=== PATIENT | male | born 1975 | race Caucasian/White ===

== ENCOUNTER 2019-01-17 18:23 | Inpatient (IN) | payer MEDICARE ==
[~2019-01-17] VITALS: Ht 188 cm; Wt 123.1 kg
[2019-01-17] MEDS ORDERED: ARIP15TA2 PO (21:10)
[2019-01-17] MEDS ORDERED: ZOLPIDEM TARTRATE 10 MG TABLET PO PRN (21:30)
[2019-01-17] MEDS ORDERED: HALOPERIDOL 5 MG TABLET PO PRN (21:30)
[2019-01-17] MEDS ORDERED: LORazepam 2 MG TABLET PO PRN (21:30)
[2019-01-17] MEDS ORDERED: INFLUENZA VIRUS VACCINE QVS 2019-20 (3YR+)/PF 60 MCG/0.5 ML SYRINGE IM ONE (22:15)
[2019-01-18 00:56] VITALS: BP 125/82
[2019-01-18 08:24] LABS: BASOPHILS % (AUTO) 0.7 % (0.0-2.0); EOSINOPHILS % (AUTO) 1.6 % (1.0-6.0); HEMATOCRIT 40.4 % (41-53); HEMOGLOBIN 13.7 g/dL (13.5-17.5); LYMPHOCYTES # (AUTO) 1.9 K/uL (1.0-4.8); LYMPHOCYTES % (AUTO) 32.7 % (22.0-44.0); MEAN CORPUSCULAR HEMOGLOBIN 30.5 pg (26.0-34.0); MEAN CORPUSCULAR HGB CONC 33.9 G/dL (31.0-37.0); MEAN CORPUSCULAR VOLUME 90 fL (80-100); MONOCYTES # (AUTO) 0.6 K/uL (0.1-1.0); MONOCYTES % (AUTO) 10.4 % (2.0-9.0); NEUTROPHILS # (AUTO) 3.2 K/uL (1.8-7.7); NEUTROPHILS % (AUTO) 54.6 % (40.0-70.0); PLATELET COUNT (AUTO) 246 K/uL (150-450); RED BLOOD CELL COUNT(AUTO) 4.49 MIL/uL (4.50-5.90); RED CELL DISTRIBUTION WIDTH 14.2 % (11.5-14.5)
[2019-01-18 09:02] LABS: ALANINE AMINOTRANSFERASE 18 U/L (12-78); ALBUMIN 3.3 g/dL (3.4-5.0); ALKALINE PHOSPHATASE 104 U/L (46-116); ANION GAP 10 mmol/L (8-16); ASPARTATE AMINOTRANSFERASE 10 U/L (15-37); BILIRUBIN,TOTAL 0.2 mg/dL (0.1-1.0); CALCIUM, TOTAL 8.5 mg/dL (8.8-10.5); CARBON DIOXIDE 25 mmol/L (22-29); CHLORIDE 103 mmol/L (98-107); CHOL/HDL RATIO 8.5 (4.2-7.3); CHOLESTEROL 213 mg/dL (131-200); CREATININE 0.86 mg/dL (0.60-1.30); FREE T4 (FREE THYROXINE) 0.95 ng/dL (0.76-1.46); GLOMERULAR FILTR. RATE CALC > 60 mL/min (>60); GLUCOSE,RANDOM 120 mg/dL (70-110); HDL CHOLESTEROL 25 mg/dL (40-60); LDL CHOL (CALC.) 116 mg/dL (0-130); POTASSIUM 3.9 mmol/L (3.5-5.1); SODIUM SERUM 138 mmol/L (136-145); THYROID STIMULATING HORMONE 1.49 uIU/mL (0.36-3.74); TOTAL PROTEIN, SERUM 6.5 g/dL (6.4-8.2); TRIGLYCERIDES 359 mg/dL (15-150); UREA NITROGEN, BLOOD 17 mg/dL (7-18)
[2019-01-18 09:05] VITALS: BP 107/61
[2019-01-18 09:10] LABS: HEMOGLOBIN A1C 5.5 % (4.5-6.2)
[2019-01-18 16:23] VITALS: BP 106/61
[2019-01-19 01:29] VITALS: BP 104/62
[2019-01-19 08:57] VITALS: BP 115/63
[2019-01-19] MEDS ORDERED: ARIPiprazole 15 MG TABLET PO SCH (09:00)
[2019-01-19 10:58] LABS: APPEARANCE,URINE CLEAR (CLEAR); BILIRUBIN,URINE NEGATIVE (NEGATIVE); GLUCOSE, URINE (UA) NEGATIVE (NEGATIVE); KETONES,URINE NEGATIVE (NEGATIVE); LEUKOCYTE ESTERASE ,URINE NEGATIVE (NEGATIVE); NITRATE,URINE NEGATIVE (NEGATIVE); OCCULT BLOOD,URINE NEGATIVE (NEGATIVE); PROTEIN,URINE NEGATIVE (NEGATIVE); UROBILINOGEN,URINE 0.2 mg/dL (<=1.0)
[2019-01-19 11:14] LABS: AMPHET/METH SCREEN,URINE NEGATIVE (NEGATIVE); BARBITURATE SCREEN, URINE NEGATIVE (NEGATIVE); BENZODIAZEPINES SCREEN,URINE NEGATIVE (NEGATIVE); CANNABINOID SCREEN,URINE POSITIVE (NEGATIVE); COCAINE SCREEN,URINE NEGATIVE (NEGATIVE); METHADONE SCREEN, URINE NEGATIVE (NEGATIVE); OPIATE SCREEN,URINE NEGATIVE (NEGATIVE)
[2019-01-19 11:15] LABS: PHENCYCLIDINE SCREEN,URINE NEGATIVE (NEGATIVE)
[2019-01-19 16:43] VITALS: BP 123/81
== END 2019-01-19 16:59 | disposition home or self-care (01) | DRG 885 ==
LOC: B2X 21:22
PROVIDERS: ADMIT Psychiatry & Neurology Psychiatry; ATTEND Psychiatry & Neurology Psychiatry
DX: F25.9 Schizoaffective disorder, unspecified (principal); R45.851 Suicidal ideations; F41.9 Anxiety disorder, unspecified; G47.00 Insomnia, unspecified; K59.00 Constipation, unspecified; Z59.0 Homelessness; Z56.0 Unemployment, unspecified
CPT/HCPCS: 80307; 83036; 84439; 84443

== ENCOUNTER 2022-04-28 01:16 | Emergency (ER) | payer MEDICARE, OTHER ==
[~2022-04-28] VITALS: Ht 190.5 cm; Wt 90.9 kg
[~2022-04-28 01:16] MED LIST: ARIP15TA27 PO
[2022-04-28 03:28] LABS: BASOPHILS % (AUTO) 0.4 % (0.0-2.0); EOSINOPHILS % (AUTO) 0.8 % (1.0-6.0); HEMATOCRIT 36.8 % (41-53); HEMOGLOBIN 12.5 g/dL (13.5-17.5); LYMPHOCYTES # (AUTO) 1.5 K/uL (1.0-4.8); LYMPHOCYTES % (AUTO) 22.5 % (22.0-44.0); MEAN CORPUSCULAR HEMOGLOBIN 28.9 pg (26.0-34.0); MEAN CORPUSCULAR HGB CONC 34.1 G/dL (31.0-37.0); MEAN CORPUSCULAR VOLUME 85 fL (80-100); MONOCYTES # (AUTO) 0.8 K/uL (0.1-1.0); MONOCYTES % (AUTO) 12.2 % (2.0-9.0); NEUTROPHILS # (AUTO) 4.4 K/uL (1.8-7.7); NEUTROPHILS % (AUTO) 64.1 % (40.0-70.0); PLATELET COUNT (AUTO) 297 K/uL (150-450); RED BLOOD CELL COUNT(AUTO) 4.33 MIL/uL (4.50-5.90); RED CELL DISTRIBUTION WIDTH 14.6 % (11.5-14.5)
[2022-04-28 03:37] LABS: ANION GAP 7 mmol/L (8-16); CARBON DIOXIDE 27 mmol/L (22-29); CHLORIDE 102 mmol/L (98-107); CREATININE 0.79 mg/dL (0.60-1.30); GLOMERULAR FILTR. RATE CALC > 60 mL/min (>60); GLUCOSE,RANDOM 110 mg/dL (70-110); POTASSIUM 4.1 mmol/L (3.5-5.1); SODIUM SERUM 136 mmol/L (136-145); UREA NITROGEN, BLOOD 9 mg/dL (7-18)
[2022-04-28 03:42] LABS: ALANINE AMINOTRANSFERASE 23 U/L (12-78); ALKALINE PHOSPHATASE 83 U/L (46-116); ASPARTATE AMINOTRANSFERASE 19 U/L (15-37); BILIRUBIN,TOTAL 0.3 mg/dL (0.1-1.0)
[2022-04-28 04:18] LABS: COVID AG,FIA SOURCE NASOPHARYNGEAL
[2022-04-28 12:42] VITALS: BP 108/64
== END 2022-04-28 13:37 | disposition home or self-care (01) ==
LOC: EMS 01:18
DX: F25.9 Schizoaffective disorder, unspecified (principal); F31.9 Bipolar disorder, unspecified; F17.210 Nicotine dependence, cigarettes, uncomplicated; Z20.822 Contact with and (suspected) exposure to COVID-19
CPT/HCPCS: 99285; 87426; 80053; 85025; G0480

== ENCOUNTER 2022-04-30 12:25 | Inpatient (IN) | payer MEDICARE, MEDICAID ==
[~2022-04-30] VITALS: Ht 188 cm; Wt 98.6 kg
[2022-04-30] MEDS ORDERED: INFLUENZA VIRUS VACCINE QVS 2022-23 (6MO+)/PF 60 MCG/0.5 ML SYRINGE IM. ONE (14:45)
[2022-04-30] MEDS ORDERED: PNEUMOCOCCAL VACCINE POLYVALENT 0.5 ML VIAL [PPSV23] IM. ONE (14:45)
[2022-04-30] MEDS ORDERED: HALOPERIDOL 5 MG TABLET PO PRN (17:45)
[2022-05-01 00:29] VITALS: BP 111/68
[2022-05-01] MEDS ORDERED: BENZOCAINE/MENTHOL LOZENGE PO PRN (05:30)
[2022-05-01] MEDS ORDERED: LOPERAMIDE HCL 2 MG CAPSULE PO PRN ×2 (05:30→15:45)
[2022-05-01] MEDS ORDERED: ALBUTEROL SULFATE HFA 90 MCG/PUFF 8 GM INHALER IH PRN ×2 (05:30→15:45)
[2022-05-01] MEDS ORDERED: CloNIDine HCL 0.1 MG TABLET PO PRN ×2 (05:30→15:45)
[2022-05-01] MEDS ORDERED: OMEPRAZOLE 20 MG CAPSULE PO PRN (05:30)
[2022-05-01] MEDS ORDERED: IBUPROFEN 600 MG TABLET PO PRN (05:30)
[2022-05-01] MEDS ORDERED: PETROLATUM,WHITE 28 GM JELLY TP PRN ×2 (05:30→15:45)
[2022-05-01] MEDS ORDERED: ONDANSETRON HCL 4 MG TABLET PO PRN ×2 (05:30→15:45)
[2022-05-01] MEDS ORDERED: DOCUSATE SODIUM 100 MG CAPSULE PO PRN ×2 (05:30→15:45)
[2022-05-01] MEDS ORDERED: BACITRACIN 28 GM OINTMENT TP PRN (05:30)
[2022-05-01] MEDS ORDERED: ACETAMINOPHEN 325 MG TABLET PO PRN ×2 (05:30→15:45)
[2022-05-01] MEDS ORDERED: MAGNESIUM HYDROXIDE SUSPENSION 30 ML UDCUP PO PRN ×2 (05:30→15:45)
[2022-05-01] MEDS ORDERED: MAG HYDROX/AL HYDROX/SIMETH ES 30 ML SUSPENSION UDCUP PO PRN ×2 (05:30→15:45)
[2022-05-01 07:20] LABS: BASOPHILS % (AUTO) 0.4 % (0.0-2.0); EOSINOPHILS % (AUTO) 0.8 % (1.0-6.0); HEMATOCRIT 39.8 % (41-53); HEMOGLOBIN 13.6 g/dL (13.5-17.5); LYMPHOCYTES # (AUTO) 1.9 K/uL (1.0-4.8); LYMPHOCYTES % (AUTO) 22.1 % (22.0-44.0); MEAN CORPUSCULAR HEMOGLOBIN 29.2 pg (26.0-34.0); MEAN CORPUSCULAR VOLUME 86 fL (80-100); MONOCYTES # (AUTO) 0.8 K/uL (0.1-1.0); MONOCYTES % (AUTO) 9.3 % (2.0-9.0); NEUTROPHILS # (AUTO) 5.8 K/uL (1.8-7.7); NEUTROPHILS % (AUTO) 67.4 % (40.0-70.0); PLATELET COUNT (AUTO) 341 K/uL (150-450); RED BLOOD CELL COUNT(AUTO) 4.64 MIL/uL (4.50-5.90)
[2022-05-01 07:31] LABS: HEMOGLOBIN A1C 5.5 % (3.8-5.6)
[2022-05-01 07:45] LABS: ALANINE AMINOTRANSFERASE 23 U/L (12-78); ALBUMIN 3.1 g/dL (3.4-5.0); ALKALINE PHOSPHATASE 114 U/L (46-116); ANION GAP 11 mmol/L (8-16); ASPARTATE AMINOTRANSFERASE 20 U/L (15-37); BILIRUBIN,TOTAL 0.4 mg/dL (0.1-1.0); CALCIUM, TOTAL 8.8 mg/dL (8.8-10.5); CARBON DIOXIDE 22 mmol/L (22-29); CHLORIDE 105 mmol/L (98-107); CHOL/HDL RATIO 4.3 (4.2-7.3); CHOLESTEROL 137 mg/dL (131-200); FREE T4 (FREE THYROXINE) 1.13 ng/dL (0.76-1.46); GLOMERULAR FILTR. RATE CALC > 60 mL/min (>60); GLUCOSE,RANDOM 100 mg/dL (70-110); HDL CHOLESTEROL 32 mg/dL (40-60); LDL CHOL (CALC.) 84 mg/dL (0-130); SODIUM SERUM 138 mmol/L (136-145); TOTAL PROTEIN, SERUM 7.6 g/dL (6.4-8.2); TRIGLYCERIDES 104 mg/dL (15-150); UREA NITROGEN, BLOOD 12 mg/dL (7-18)
[2022-05-01 08:42] VITALS: BP 113/72
[2022-05-01] MEDS ORDERED: IBUPROFEN 400 MG TABLET PO PRN (15:45)
[2022-05-01] MEDS ORDERED: GuaiFENesin/D-METHORPHAN [SUGAR-FREE] 200-20MG/10 ML SYRUP UDCUP PO PRN (15:45)
[2022-05-01] MEDS ORDERED: NICOTINE 14 MG/24 HOUR PATCH TD PRN (15:45)
[2022-05-01 20:04] VITALS: BP 110/68
[2022-05-02 08:10] VITALS: BP 108/60
[2022-05-02] MEDS ORDERED: LORazepam 2 MG/ML VIAL ONE (13:49)
[2022-05-02] MEDS ORDERED: DiphenhydrAMINE HCL 50 MG/ML VIAL ONE (13:52)
[2022-05-02] MEDS ORDERED: HALOPERIDOL LACTATE 5 MG/ML VIAL ONE (13:53)
[2022-05-02] MEDS ORDERED: DiphenhydrAMINE HCL 50 MG/ML VIAL IM ONE (14:00)
[2022-05-02] MEDS ORDERED: HALOPERIDOL LACTATE 5 MG/ML VIAL IM ONE (14:00)
[2022-05-02] MEDS ORDERED: LORazepam 2 MG/ML VIAL IM ONE (14:00)
[2022-05-02 20:03] VITALS: BP 110/62
[2022-05-03] MEDS ORDERED: LORazepam 2 MG/ML VIAL ONE (14:11)
[2022-05-03] MEDS ORDERED: HALOPERIDOL LACTATE 5 MG/ML VIAL ONE (14:11)
[2022-05-03] MEDS ORDERED: DiphenhydrAMINE HCL 50 MG/ML VIAL ONE (14:11)
[2022-05-03] MEDS ORDERED: HALOPERIDOL LACTATE 5 MG/ML VIAL IM ONE (14:15)
[2022-05-03] MEDS ORDERED: LORazepam 2 MG/ML VIAL IM ONE (14:15)
[2022-05-03] MEDS ORDERED: DiphenhydrAMINE HCL 50 MG/ML VIAL IM ONE (14:15)
[2022-05-03 20:19] VITALS: BP 110/57
[2022-05-03 20:48] VITALS: BP 128/70
[2022-05-03] MEDS: ZOLPIDEM TARTRATE 10 MG TABLET PO PRN (20:51)
[2022-05-03] MEDS: LORazepam 2 MG TABLET PO PRN (20:51)
[2022-05-03] MEDS: HALOPERIDOL 5 MG TABLET PO SCH (20:51)
[2022-05-04 08:02] VITALS: BP 106/55
[2022-05-04] MEDS: LORazepam 2 MG TABLET PO PRN (16:27)
[2022-05-04 20:02] VITALS: BP 110/62
[2022-05-04] MEDS: HALOPERIDOL 5 MG TABLET PO SCH (20:28)
[2022-05-04] MEDS: ZOLPIDEM TARTRATE 10 MG TABLET PO PRN (20:28)
[2022-05-05 08:11] VITALS: BP 114/69
[2022-05-05 12:32] LABS: AMPHET/METH SCREEN,URINE NEGATIVE (NEGATIVE); BARBITURATE SCREEN, URINE NEGATIVE (NEGATIVE); BENZODIAZEPINES SCREEN,URINE NEGATIVE (NEGATIVE); CANNABINOID SCREEN,URINE POSITIVE (NEGATIVE); COCAINE SCREEN,URINE NEGATIVE (NEGATIVE); METHADONE SCREEN, URINE NEGATIVE (NEGATIVE); OPIATE SCREEN,URINE NEGATIVE (NEGATIVE); PHENCYCLIDINE SCREEN,URINE NEGATIVE (NEGATIVE)
[2022-05-05 20:03] VITALS: BP 124/75
[2022-05-05] MEDS: HALOPERIDOL 5 MG TABLET PO SCH (20:23)
[2022-05-05] MEDS: ZOLPIDEM TARTRATE 10 MG TABLET PO PRN (20:23)
[2022-05-06 08:53] VITALS: BP 140/72
[2022-05-06 20:04] VITALS: BP 138/68
[2022-05-06] MEDS: ZOLPIDEM TARTRATE 10 MG TABLET PO PRN (20:12)
[2022-05-06] MEDS: HALOPERIDOL 5 MG TABLET PO SCH (20:12)
[2022-05-06] MEDS: LORazepam 2 MG TABLET PO PRN (20:12)
[2022-05-07 08:34] VITALS: BP 118/65
[2022-05-07 12:06] LABS: GLUCOMETER DEV NAME(LOC) POC.BV
[2022-05-07 20:03] VITALS: BP 122/70
[2022-05-07] MEDS: ZOLPIDEM TARTRATE 10 MG TABLET PO PRN (20:12)
[2022-05-07] MEDS: HALOPERIDOL 5 MG TABLET PO SCH (20:12)
[2022-05-07] MEDS: LORazepam 2 MG TABLET PO PRN (20:12)
[2022-05-08 08:35] VITALS: BP 124/71
[2022-05-08] MEDS: LORazepam 2 MG TABLET PO PRN (18:12)
[2022-05-08 20:15] VITALS: BP 105/63
[2022-05-08] MEDS: ZOLPIDEM TARTRATE 10 MG TABLET PO PRN (20:17)
[2022-05-08] MEDS: HALOPERIDOL 5 MG TABLET PO SCH (20:17)
[2022-05-09 08:00] VITALS: BP 112/74
[2022-05-09] MEDS: HALOPERIDOL 5 MG TABLET PO SCH (20:00)
[2022-05-09] MEDS: LORazepam 2 MG TABLET PO PRN (20:08)
[2022-05-09] MEDS: ZOLPIDEM TARTRATE 10 MG TABLET PO PRN (20:08)
[2022-05-10 08:14] VITALS: BP 107/60
[2022-05-10 08:17] VITALS: BP 107/60
[2022-05-10] MEDS ORDERED: HALO5TAB23 PO ×2 (10:06→13:00)
== END 2022-05-10 13:18 | disposition home or self-care (01) | DRG 885 ==
LOC: B3A 13:00
PROVIDERS: ADMIT Psychiatry & Neurology Psychiatry; ATTEND Psychiatry & Neurology Psychiatry
DX: F25.9 Schizoaffective disorder, unspecified (principal); R45.851 Suicidal ideations; Z20.822 Contact with and (suspected) exposure to COVID-19; F17.200 Nicotine dependence, unspecified, uncomplicated; F41.9 Anxiety disorder, unspecified; F10.90 Alcohol use, unspecified, uncomplicated; G47.00 Insomnia, unspecified; J44.9 Chronic obstructive pulmonary disease, unspecified; M54.50 Low back pain, unspecified; R48.8 Other symbolic dysfunctions; Z28.21 Immunization not carried out because of patient refusal; Z56.0 Unemployment, unspecified; Z71.6 Tobacco abuse counseling; Z71.41 Alcohol abuse counseling and surveillance of alcoholic
CPT/HCPCS: 80053; 80061; 80307; 83036; 84439; 84443; 85025; J1200; J1630; J2060

== ENCOUNTER 2022-06-13 07:45 | Inpatient (IN) | payer MEDICARE, MEDICAID ==
[~2022-06-13] VITALS: Ht 190.5 cm; Wt 96.5 kg
[~2022-06-13 07:45] MED LIST changes: -ARIP15TA27 PO; +HALO5TAB23 PO
[2022-06-13] MEDS ORDERED: HALOPERIDOL LACTATE 5 MG/ML VIAL IM ONE (08:45)
[2022-06-13] MEDS ORDERED: LORazepam 2 MG/ML VIAL IM ONE (08:45)
[2022-06-13] MEDS ORDERED: DiphenhydrAMINE HCL 50 MG/ML VIAL IM ONE (08:45)
[2022-06-13] MEDS ORDERED: ARIP400S3 IM (09:03)
[2022-06-13 09:16] LABS: BASOPHILS % (AUTO) 0.6 % (0.0-2.0); EOSINOPHILS % (AUTO) 0.8 % (1.0-6.0); HEMATOCRIT 34.5 % (41-53); HEMOGLOBIN 11.8 g/dL (13.5-17.5); LYMPHOCYTES % (AUTO) 21.9 % (22.0-44.0); MEAN CORPUSCULAR HEMOGLOBIN 29.6 pg (26.0-34.0); MEAN CORPUSCULAR HGB CONC 34.2 G/dL (31.0-37.0); MEAN CORPUSCULAR VOLUME 87 fL (80-100); MONOCYTES # (AUTO) 0.8 K/uL (0.1-1.0); MONOCYTES % (AUTO) 8.9 % (2.0-9.0); NEUTROPHILS # (AUTO) 6.1 K/uL (1.8-7.7); NEUTROPHILS % (AUTO) 67.8 % (40.0-70.0); PLATELET COUNT (AUTO) 359 K/uL (150-450); RED BLOOD CELL COUNT(AUTO) 3.99 MIL/uL (4.50-5.90); RED CELL DISTRIBUTION WIDTH 15.7 % (11.5-14.5)
[2022-06-13 09:25] LABS: ANION GAP 8 mmol/L (8-16); CALCIUM, TOTAL 8.7 mg/dL (8.8-10.5); CARBON DIOXIDE 26 mmol/L (22-29); CHLORIDE 101 mmol/L (98-107); CREATININE 0.84 mg/dL (0.60-1.30); GLOMERULAR FILTR. RATE CALC > 60 mL/min (>60); GLUCOSE,RANDOM 100 mg/dL (70-110); POTASSIUM 3.6 mmol/L (3.5-5.1); SODIUM SERUM 135 mmol/L (136-145); UREA NITROGEN, BLOOD 14 mg/dL (7-18)
[2022-06-13] MEDS ORDERED: HALOPERIDOL 5 MG TABLET PO PRN (09:30)
[2022-06-13] MEDS ORDERED: ZOLPIDEM TARTRATE 10 MG TABLET PO PRN (09:30)
[2022-06-13 09:32] LABS: ALANINE AMINOTRANSFERASE 19 U/L (12-78); ALBUMIN 3.3 g/dL (3.4-5.0); ALKALINE PHOSPHATASE 107 U/L (46-116); ASPARTATE AMINOTRANSFERASE 24 U/L (15-37); BILIRUBIN,TOTAL 0.3 mg/dL (0.1-1.0); TOTAL PROTEIN, SERUM 7.1 g/dL (6.4-8.2)
[2022-06-13 10:46] LABS: COVID AG,FIA SOURCE NASAL SWAB
[2022-06-13 10:57] LABS: APPEARANCE,URINE CLEAR (CLEAR); BILIRUBIN,URINE NEGATIVE (NEGATIVE); GLUCOSE, URINE (UA) NEGATIVE (NEGATIVE); KETONES,URINE NEGATIVE (NEGATIVE); LEUKOCYTE ESTERASE ,URINE NEGATIVE (NEGATIVE); NITRATE,URINE NEGATIVE (NEGATIVE); OCCULT BLOOD,URINE NEGATIVE (NEGATIVE); PH,URINE 6.5 (5.0-8.0); PROTEIN,URINE NEGATIVE (NEGATIVE); SPECIFIC GRAVITIY, URINE 1.013 (1.003-1.030); UROBILINOGEN,URINE <=1.0 mg/dL (<=1.0)
[2022-06-13 11:05] LABS: AMPHET/METH SCREEN,URINE POSITIVE (NEGATIVE); BARBITURATE SCREEN, URINE NEGATIVE (NEGATIVE); BENZODIAZEPINES SCREEN,URINE NEGATIVE (NEGATIVE); CANNABINOID SCREEN,URINE POSITIVE (NEGATIVE); COCAINE SCREEN,URINE NEGATIVE (NEGATIVE); METHADONE SCREEN, URINE NEGATIVE (NEGATIVE); OPIATE SCREEN,URINE NEGATIVE (NEGATIVE); PHENCYCLIDINE SCREEN,URINE NEGATIVE (NEGATIVE)
[2022-06-13 21:30] VITALS: BP 115/71
[2022-06-14] MEDS ORDERED: INFLUENZA VIRUS VACCINE QVS 2022-23 (6MO+)/PF 60 MCG/0.5 ML SYRINGE IM. ONE (03:00)
[2022-06-14] MEDS ORDERED: LOPERAMIDE HCL 2 MG CAPSULE PO PRN (06:30)
[2022-06-14] MEDS ORDERED: PETROLATUM,WHITE 28 GM JELLY TP PRN (06:30)
[2022-06-14] MEDS ORDERED: NICOTINE 14 MG/24 HOUR PATCH TD PRN (06:30)
[2022-06-14] MEDS ORDERED: ALBUTEROL SULFATE HFA 90 MCG/PUFF 8 GM INHALER IH PRN (06:30)
[2022-06-14] MEDS ORDERED: GuaiFENesin/D-METHORPHAN [SUGAR-FREE] 200-20MG/10 ML SYRUP UDCUP PO PRN (06:30)
[2022-06-14] MEDS ORDERED: MAG HYDROX/AL HYDROX/SIMETH ES 30 ML SUSPENSION UDCUP PO PRN (06:30)
[2022-06-14] MEDS ORDERED: IBUPROFEN 400 MG TABLET PO PRN (06:30)
[2022-06-14] MEDS ORDERED: MAGNESIUM HYDROXIDE SUSPENSION 30 ML UDCUP PO PRN (06:30)
[2022-06-14] MEDS ORDERED: DOCUSATE SODIUM 100 MG CAPSULE PO PRN (06:30)
[2022-06-14] MEDS ORDERED: CloNIDine HCL 0.1 MG TABLET PO PRN (06:30)
[2022-06-14] MEDS ORDERED: ONDANSETRON HCL 4 MG TABLET PO PRN (06:30)
[2022-06-14] MEDS ORDERED: ACETAMINOPHEN 325 MG TABLET PO PRN (06:30)
[2022-06-14 08:37] VITALS: BP 115/65
[2022-06-14] MEDS ORDERED: ARIPiprazole ER SUSPENSION 400 MG PRE-FILLED DUAL CHAMBER SYRINGE IM ONE (11:00)
[2022-06-14 16:21] VITALS: BP 124/69
[2022-06-14] MEDS: LORazepam 2 MG TABLET PO PRN (17:23)
[2022-06-14] MEDS: HALOPERIDOL 5 MG TABLET PO SCH (20:21)
[2022-06-14 20:28] VITALS: BP 117/76
[2022-06-15 09:31] VITALS: BP 93/55
[2022-06-15 17:11] VITALS: BP 107/72
[2022-06-15 20:47] VITALS: BP 112/76
[2022-06-15] MEDS: HALOPERIDOL 5 MG TABLET PO SCH (21:00)
[2022-06-16 16:26] VITALS: BP 110/70
[2022-06-16 20:20] VITALS: BP 112/76
[2022-06-16] MEDS: HALOPERIDOL 5 MG TABLET PO SCH (20:43)
[2022-06-16] MEDS: LORazepam 2 MG TABLET PO PRN (21:56)
[2022-06-17 09:00] VITALS: BP 108/50
[2022-06-17 16:05] VITALS: BP 120/68
[2022-06-17] MEDS: HALOPERIDOL 5 MG TABLET PO SCH (20:29)
[2022-06-17] MEDS: LORazepam 2 MG TABLET PO PRN (20:29)
[2022-06-17 20:46] VITALS: BP 119/66
[2022-06-18 08:11] VITALS: BP 117/66
[2022-06-18] MEDS: LORazepam 2 MG TABLET PO PRN ×2 (10:30→19:36)
[2022-06-18 16:08] VITALS: BP 105/60
[2022-06-18] MEDS: HALOPERIDOL 5 MG TABLET PO SCH (20:05)
[2022-06-18 20:20] VITALS: BP 120/63
[2022-06-19 08:25] VITALS: BP 101/58
[2022-06-19 08:30] LABS: COVID AG,FIA SOURCE NASAL SWAB
[2022-06-19 16:14] VITALS: BP 111/59
[2022-06-19] MEDS: HALOPERIDOL 5 MG TABLET PO SCH (20:07)
[2022-06-20 08:19] VITALS: BP 105/69
[2022-06-20 16:06] VITALS: BP 106/65
[2022-06-20] MEDS: HALOPERIDOL 5 MG TABLET PO SCH (20:25)
[2022-06-21 08:21] VITALS: BP 107/68
[2022-06-21 16:04] VITALS: BP 114/64
[2022-06-21] MEDS: HALOPERIDOL 5 MG TABLET PO SCH (20:26)
[2022-06-21 20:50] VITALS: BP 126/72
[2022-06-21] MEDS: LORazepam 2 MG TABLET PO PRN (21:23)
[2022-06-22] MEDS ORDERED: HALO5TAB23 PO (14:07)
[2022-06-22] MEDS ORDERED: ARIP400S3 IM (14:07)
[2022-07-12] MEDS ORDERED: ARIPiprazole ER SUSPENSION 400 MG PRE-FILLED DUAL CHAMBER SYRINGE IM SCH (09:00)
== END 2022-06-22 12:15 | disposition home or self-care (01) | DRG 885 ==
LOC: EMS 07:46 → 3EC 17:55
PROVIDERS: ADMIT Psychiatry & Neurology Child & Adolescent Psychiatry; ATTEND Psychiatry & Neurology Child & Adolescent Psychiatry
DX: F20.0 Paranoid schizophrenia (principal); J44.9 Chronic obstructive pulmonary disease, unspecified; D64.9 Anemia, unspecified; F99 Mental disorder, not otherwise specified; F15.90 Other stimulant use, unspecified, uncomplicated; Z87.891 Personal history of nicotine dependence; Z20.822 Contact with and (suspected) exposure to COVID-19; F10.10 Alcohol abuse, uncomplicated
CPT/HCPCS: 80053; 80307; 81003; 85025; 87081; 99291; G0480; J0401; J1200; J1630; J2060; Q0162

== ENCOUNTER 2022-07-02 20:02 | Emergency (ER) | payer MEDICAID, MEDICARE, OTHER ==
[~2022-07-02] VITALS: Ht 188 cm; Wt 100.0 kg
[~2022-07-02 20:02] MED LIST changes: +ARIP400S3 IM
[2022-07-03 00:23] VITALS: BP 132/84
[2022-07-03] MEDS ORDERED: LORazepam 1 MG TABLET PO ONE (00:30)
[2022-07-03] MEDS ORDERED: HALOPERIDOL 5 MG TABLET PO ONE (00:30)
[2022-07-03 01:05] LABS: BASOPHILS % (AUTO) 0.4 % (0.0-2.0); EOSINOPHILS % (AUTO) 1.5 % (1.0-6.0); HEMATOCRIT 36.3 % (41-53); HEMOGLOBIN 12.1 g/dL (13.5-17.5); LYMPHOCYTES % (AUTO) 22.3 % (22.0-44.0); MEAN CORPUSCULAR HEMOGLOBIN 28.9 pg (26.0-34.0); MEAN CORPUSCULAR HGB CONC 33.3 G/dL (31.0-37.0); MEAN CORPUSCULAR VOLUME 87 fL (80-100); MONOCYTES # (AUTO) 0.7 K/uL (0.1-1.0); NEUTROPHILS % (AUTO) 67.8 % (40.0-70.0); PLATELET COUNT (AUTO) 247 K/uL (150-450); RED BLOOD CELL COUNT(AUTO) 4.18 MIL/uL (4.50-5.90); RED CELL DISTRIBUTION WIDTH 16.3 % (11.5-14.5)
[2022-07-03 01:06] LABS: ANION GAP 8 mmol/L (8-16); CALCIUM, TOTAL 9.3 mg/dL (8.8-10.5); CARBON DIOXIDE 27 mmol/L (22-29); CHLORIDE 105 mmol/L (98-107); CREATININE 0.92 mg/dL (0.60-1.30); GLOMERULAR FILTR. RATE CALC > 60 mL/min (>60); GLUCOSE,RANDOM 108 mg/dL (70-110); POTASSIUM 3.8 mmol/L (3.5-5.1); SODIUM SERUM 140 mmol/L (136-145); UREA NITROGEN, BLOOD 21 mg/dL (7-18)
[2022-07-03 01:12] LABS: ALANINE AMINOTRANSFERASE 18 U/L (12-78); ALBUMIN 3.4 g/dL (3.4-5.0); ALKALINE PHOSPHATASE 98 U/L (46-116); ASPARTATE AMINOTRANSFERASE 21 U/L (15-37); BILIRUBIN,TOTAL 0.4 mg/dL (0.1-1.0); TOTAL PROTEIN, SERUM 7.2 g/dL (6.4-8.2)
== END 2022-07-03 06:29 | disposition home or self-care (01) ==
LOC: EMS 20:30
DX: F25.9 Schizoaffective disorder, unspecified (principal); F15.10 Other stimulant abuse, uncomplicated; F31.9 Bipolar disorder, unspecified; F17.210 Nicotine dependence, cigarettes, uncomplicated; F14.90 Cocaine use, unspecified, uncomplicated; F12.90 Cannabis use, unspecified, uncomplicated
CPT/HCPCS: 99285; 80053; 85025; G0480